=== PATIENT | female | born 1970 | race Caucasian/White ===

== ENCOUNTER 2016-11-01 17:36 | Emergency (ER) | payer MEDICAID ==
[~2016-11-01] VITALS: Ht 162.6 cm; Wt 86.2 kg
[2016-11-01 17:51] VITALS: BP 129/77
--- NOTE | 2016-11-01 18:10 | NUR ---
46/F BIB FAMILY C/O ABDOMINAL PAIN 10 DIARHEA SINCE TUESDAY HX; THYROID. RX;DENIE. DENIES N/V/D; SKIN IS PINK/WARM/DRY; AAOX4 WITH EVEN AND STEADY GAIT; LUNGS CLEAR BL; HR EVEN AND REGULAR; PT DENIES ANY FEVER, CP, SOB, OR COUGH AT THIS TIME; PATIENT STATES PAIN OF 10 AT THIS TIME; VSS; PATIENT POSITIONED FOR COMFORT; HOB ELEVATED; BEDRAILS UP X2; BED DOWN. ER MD MADE AWARE OF PT STATUS.
--- NOTE | 2016-11-01 18:16 | NUR ---
Patient being evaluated by DR SANDRA at bedside.
--- NOTE | 2016-11-01 18:18 | NUR ---
Dr. Gonzales evaluating patient at bedside.
--- NOTE | 2016-11-01 18:28 | NUR ---
PT C/O PAIN ALL OVER BODY AT THIS TIME. PT WANT PAIN MED. NOTIFIED DR SANDRA.
[2016-11-01] MEDS ORDERED: NACL 0.9% 500 ML IV ONE (18:35)
[2016-11-01] MEDS ORDERED: ONDANSETRON 4 MG/2 ML VIAL IVP ONE (18:35)
[2016-11-01] MEDS ORDERED: KETOROLAC 30 MG/ML VIAL IVP ONE (18:40)
--- NOTE | 2016-11-01 18:59 | NUR ---
US AT BEDSIDE.
--- NOTE | 2016-11-01 19:01 | NUR ---
Pt report given to SONIA LARES. Transfer of care at this time.
[2016-11-01 19:13] LABS: BASOPHILS # (AUTO) 0.1 K/uL (0.00-0.22); BASOPHILS % (AUTO) 0.9 % (0.0-2.0); EOSINOPHILS # (AUTO) 0.2 K/uL (0-0.4); EOSINOPHILS % (AUTO) 1.7 % (0.0-4.0); HEMOGLOBIN 12.6 g/dL (12.0-16.0); LYMPHOCYTES # (AUTO) 0.9 K/uL (2.5-16.5); LYMPHOCYTES % (AUTO) 7.1 % (20.5-51.1); MEAN CORPUSCULAR HEMOGLOBIN 28 pg (27-31); MEAN CORPUSCULAR HGB CONC 32 g/dL (33-37); MEAN CORPUSCULAR VOLUME 87 fL (80-94); MONOCYTES # (AUTO) 0.7 K/uL (0.8-1.0); MONOCYTES % (AUTO) 5.6 % (1.7-9.3); NEUTROPHILS # (AUTO) 11.3 K/uL (1.8-7.7); NEUTROPHILS % (AUTO) 84.7 % (42.2-75.2); PLATELET COUNT (AUTO) 259 K/uL (140-450); RED CELL DISTRIBUTION WIDTH 14.6 % (11.6-13.7); WHITE BLOOD COUNT (AUTO) 13.2 K/uL (4.8-10.8)
[2016-11-01 19:19] LABS: BILIRUBIN,URINE 1+ (NEGATIVE); BLOOD, URINE 3+ (NEGATIVE); COLOR,URINE YELLOW (YELLOW); LEUKOCYTE ESTERASE ,URINE TRACE (NEGATIVE); NITRITE, URINE NEGATIVE (NEGATIVE); UGLUCOSE NEGATIVE (NEGATIVE)
--- NOTE | 2016-11-01 19:23 | NUR ---
PT RESTING ON BED;NO ACUTE DISTRESS NOTED;WILL CONTINUE TO MONITOR PT.
[2016-11-01 19:27] LABS: APPEARANCE,URINE HAZY (CLEAR)
[2016-11-01 19:32] LABS: ANION GAP 13.7 (8-16); CARBON DIOXIDE 24.6 mmol/L (21-32); CREATININE 0.9 mg/dL (0.6-1.3); POTASSIUM 3.3 mmol/L (3.5-5.1)
[2016-11-01 19:38] LABS: ALBUMIN 3.1 g/dL (3.4-5.0); TOTAL BILIRUBIN 0.2 mg/dL (0.0-1.0)
[2016-11-01 19:43] LABS: RBC,URINE TOO NUMEROUS TO COUN /HPF (0-5); YEAST,URINE Few /HPF (None Seen)
[2016-11-01 20:03] VITALS: BP 124/75
--- NOTE | 2016-11-01 20:09 | NUR ---
Note berny in EDM - 11/01/16 [facility] 2009 [facility] with v/s stable. Written and verbal after care instructions given and explained. Patient verbalized understanding. Ambulatory with steady gait. All questions addressed prior to discharge. Advised to follow up with PMD.
== END 2016-11-01 20:03 | disposition home or self-care (01) ==
LOC: MED 17:36
DX: T62.8X1A Toxic effect of other specified noxious substances eaten as food, accidental (unintentional), initial encounter (principal); K52.89 Other specified noninfective gastroenteritis and colitis; R03.0 Elevated blood-pressure reading, without diagnosis of hypertension; Y92.89 Other specified places as the place of occurrence of the external cause
CPT/HCPCS: 36415; 76700; 80053; 81001; 83690; 85025; 87086; 96361; 96374; 96375; 99285; J1885; J2405; J7030; Q0092

== ENCOUNTER 2023-10-13 10:28 | Emergency (ER) | payer MEDICAID, OTHER ==
[~2023-10-13] VITALS: Ht 162.6 cm; Wt 81.6 kg
[2023-10-13 10:47] VITALS: BP 139/74; PULSE 98; RESP 20; TEMP 98.3; O2SAT 98
[2023-10-13] MEDS: ACETAMINOPHEN EXTRA STRENGTH 500 MG TAB PO ONE (12:00)
[2023-10-13] MEDS: KETOROLAC 30 MG/ML VIAL IM ONE (12:01)
[2023-10-13 12:21] LABS: APPEARANCE,URINE CLEAR (CLEAR); BILIRUBIN,URINE NEGATIVE (NEGATIVE); BLOOD, URINE 2+ (NEGATIVE); COLOR,URINE YELLOW (YELLOW); LEUKOCYTE ESTERASE ,URINE NEGATIVE (NEGATIVE); NITRITE, URINE NEGATIVE (NEGATIVE); PH,URINE 6.5 (5.0-9.0); PROTEIN,URINE 1+ (NEGATIVE); UGLUCOSE NEGATIVE (NEGATIVE); UROBILINOGEN,URINE 0.2 EU/dL (0.2 - 1)
[2023-10-13 12:39] LABS: BACTERIA,URINE 1+ /HPF (None Seen); MUCUS,URINE 1+ /LPF (None Seen); SQUAMOUS EPITHELIAL CELL,UR 0-3 (FEW) /LPF (0-3 (FEW))
[2023-10-13 12:53] LABS: FLU A ANTIGEN negative (NEGATIVE); FLU B ANTIGEN negative (NEGATIVE)
[2023-10-13] MEDS ORDERED: CEPH-588 PO (13:15)
[2023-10-13] MEDS ORDERED: IBUP-2218 PO (13:15)
[2023-10-13] MEDS ORDERED: ACET500T99 PO (13:15)
[2023-10-13] MEDS ORDERED: CYCL-711 PO (13:15)
[2023-10-13 13:26] VITALS: BP 130/72; PULSE 88; RESP 16; TEMP 98.3; O2SAT 99
== END 2023-10-13 13:26 | disposition home or self-care (01) ==
LOC: MED 10:28
DX: N39.0 Urinary tract infection, site not specified (principal); R07.9 Chest pain, unspecified; Z20.822 Contact with and (suspected) exposure to COVID-19; Z79.899 Other long term (current) drug therapy
CPT/HCPCS: 81001; 81025; 87086; 87426; 87804; 93005; 96372; 99284; J1885